=== PATIENT | male | born 1990 | race Caucasian/White ===

== ENCOUNTER → 2017-06-02 | Outpatient (CLI) | payer BC ==
[~2017-06-02] MED LIST: CYCL0.052 OPB; MULT-506 PO
--- NOTE | 2017-06-02 15:11 | DIAGNOSTIC IMAGING REPORT ---
ORBIT RADIOGRAPHS 3 VIEWS HISTORY: pre-MRI screening. COMPARISON: None. FINDINGS: There are no radiopaque foreign bodies identified within the orbits. IMPRESSION: No radiopaque foreign bodies identified within the orbits. Electronically signed by: Rolando Costa M.D. 06/02/2017 3:09 PM Dictated Date/Time: 06/02/2017 3:09 PM
--- NOTE | 2017-06-02 17:21 | DIAGNOSTIC IMAGING REPORT ---
L LOWER EXT JOINT WITHOUT CLINICAL HISTORY: 26 years-old Male with LEFT KNEE INTERNAL DERANGEMENT. Acute anterior and lateral left knee pain for several months with joint line tenderness to palpation. COMPARISON: None available TECHNIQUE: Multiplanar, multisequence MRI of the left knee was performed without intravenous contrast. FINDINGS: MENISCI: The medial meniscus is normal in position, morphology and signal. There is irregular linear increased T2 signal of the anterior horn lateral meniscus extending towards the superior articular surface as seen on images 15 and 16 of series 7 and image 14 series 5 with adjacent lobular circumscribed T2 hyperintense collection measuring 2.5 x 1.0 x 1.1 cm in AP, transverse and craniocaudal dimensions respectively nicely seen on image 21 series 8 and image 15 series 5. No definite displaced meniscal fragment identified. There is mild parameniscal edema within the adjacent meniscal gutter. CRUCIATE LIGAMENTS: The anterior and posterior cruciate ligaments are normal in signal, morphology and course. COLLATERAL LIGAMENTS: The popliteus tendon, biceps femoris tendon, fibular collateral ligament and iliotibial band are intact. The superficial and deep components of the medial collateral ligament are intact. EXTENSOR MECHANISM: The quadriceps and patellar tendons are intact. The medial and lateral patellar retinacula are intact. KNEE JOINT: There is no large joint effusion. There is no focal cartilage or osteochondral abnormality. BONE MARROW: The bone marrow signal is age appropriate. No fracture, marrow edema, or marrow replacing process. SOFT TISSUES: There is mild soft tissue edema noted interposed between the iliotibial band and lateral femoral condyle as seen on image 16 series 5. Minimal fluid within the deep pretibial bursa. 7 mm T2 hyperintense lesion is noted adjacent to the medial head gastrocnemius insertion site about the posterior aspect of the medial femoral condyle suggesting small ganglion. No large Navarro's cyst. IMPRESSION: 1. Mild intrameniscal signal of the anterior horn lateral meniscus is noted with irregular linear area of increased T2 signal extending towards the superior articular surface as above suspicious for a meniscal tear. Additionally, there is a T2 hyperintense collection adjacent to the anterior horn lateral meniscus measuring up to 2.5 cm suggesting parameniscal cyst. A ganglion could have a similar imaging appearance however is thought to be less likely. 2. Mild soft tissue edema interposed between the iliotibial band and lateral femoral condyle is likely reactive from the aforementioned meniscal findings. Correlate clinically to exclude iliotibial band syndrome. 3. No acute ligamentous injury, bone marrow edema or chondral abnormality identified. The above report was generated using voice recognition software. It may contain grammatical, syntax or spelling errors. Electronically signed by: Bib Jimenez M.D. 06/02/2017 5:19 PM Dictated Date/Time: 06/02/2017 5:08 PM
== END | disposition home or self-care (01) ==
LOC: C.RADBC 14:53
PROVIDERS: ATTEND Family Medicine
DX: M23.92 Unspecified internal derangement of left knee (principal); Z01.818 Encounter for other preprocedural examination

== ENCOUNTER → 2017-06-15 | Day surgery (SDC) | payer BC ==
[2017-06-11 08:56] VITALS: Ht 172.7 cm; Wt 65.9 kg
[~2017-06-15] VITALS: Ht 172.7 cm; Wt 65.9 kg
[~2017-06-15] MED LIST changes: +CEFAZOLIN 2000MG IV PUSH 15 ML IV SCH; +DEXAMETHASONE SOD INJ 4 MG/ML VIAL ONE; +FENTANYL CITRATE INJ 50 MCG/1 ML 2 ML VIAL ONE; +KETOROLAC TROMETHAMINE 30 MG/ML VIAL ONE; +LACTATED RINGER'S 1000ML 1,000 ML IV SCH; +LIDOCAINE HCL 2% 2 ML VIAL (20MG/ML) ONE; +MIDAZOLAM HCL 1 MG/ML 2ML VIAL ONE; +ONDANSETRON INJ 2 MG/ML 2 ML VIAL IV PRN; +ONDANSETRON INJ 2 MG/ML 2 ML VIAL ONE; +OXYCODONE/ACETAMINOPHEN 5-325 TAB PO PRN; +PROPOFOL IV EMULSION 10 MG/ML 20 ML VIAL IV ONE; +ROPIVACAINE 0.5% 5 MG/ML 30 ML VIAL ONE; +SODIUM CHLORIDE 0.9% 1000ML 1,000 ML IV SCH
--- NOTE | 2017-06-15 08:42 | History & Physical Bridge - SC ---
H&P Re-Evaluation Bridge Note: I have examined the patient, reviewed the History & Physical and in the interval since the performance of the History & Physical I have noted the following changes of clinical significance: No changes noted
[2017-06-15] MEDS: EpINEphrine HCL INJ 1 MG/ML 1ML SYRINGE ONE ×2 (10:13→10:38)
[2017-06-15] MEDS: LIDO 2%/EPINEPHRINE 1:100000 20 ML VIAL INFIL ONE ×2 (10:37→10:51)
--- NOTE | 2017-06-15 10:39 | [facility] Post Operative Brief Note ---
Immediate Operative Summary Operative Date Jun 15, 2017. Pre-Operative Diagnosis Left Knee Lateral Meniscus Tear, Parameniscal cyst Post-Operative Diagnosis Left knee synovitis, Healed lateral meniscus tear with parameniscal cyst Procedure(s) Performed Left Knee Arthroscopy, Synovectomy, Open Excision Lateral Parameniscal Cyst Surgeon Dr. Jose Dove Solar Installer Technician Surgeon(s) Waylon Pate MD, Logan Maradiaga PA-C, COSME BradleyII Estimated Blood Loss 5CC Findings Consistent with Post-Op Diagnosis Fluids (cc crystalloids) 800 cc Specimens A. Left Knee Parameniscal Cyst Drains None Anesthesia Type General Complication(s) none Disposition Accompanied Pt To Recovery: no Disposition: Recovery Room / PACU
--- NOTE | 2017-06-15 10:58 | [facility] Operative Report ---
Operative Report Operative Date Jun 15, 2017. Pre-Operative Diagnosis Left Knee Lateral Meniscus Tear, Parameniscal cyst Post-Operative Diagnosis Left knee synovitis, Healed lateral meniscus tear with parameniscal cyst Procedure(s) Performed Left Knee Arthroscopy, Synovectomy, Open Excision Lateral Parameniscal Cyst Surgeon Dr. Jose Dove Global Human Resources Director Surgeon(s) Waylon Pate MD, Logan Maradiaga PA-C, [employer] BradleyII Estimated Blood Loss 5CC Fluids 800 cc Specimens A. Left Knee Parameniscal Cyst Drains None Anesthesia Type General Complication(s) none Disposition no Recovery Room / PACU I attest to the content of the Intraoperative Record and any orders documented therein. Any exceptions are noted below.
--- NOTE | 2017-06-15 11:03 | Discharge Instructions ---
Discharge Instructions Date of Service Jun 15, 2017. Admission Reason for Admission: Left Knee Partial Lateral Meniscus Tear Paramenisc Discharge Discharge Diagnosis / Problem: Left knee partial lateral meniscus tear; synovitis; parameniscal cyst Discharge Goals Goal(s): Decrease discomfort, Improve function, Increase independence Activity Recommendations Activity Limitations: as noted below Lifting Limitations: none Exercise/Sports Limitations: until after follow-up appointment May Resume Sexual Activity: when tolerated Shower/Bathe: tomorrow, keep incision dry Driving or Machine Use: resume 3 days after discharge Weightbearing Status: Left weightbearing (as tolerated with aide of crutches) . Instructions / Follow-Up Instructions / Follow-Up Post-operative Instructions Dear Patient and Family/Friends, Before you are discharged from the hospital, it is important to know what to expect when you get home after surgery. To that end, we have created this sheet of discharge instructions which covers many commonly asked questions. Make sure you go through this sheet in its entirety with your nurse before you are discharged. Please note that we will go over the specifics of your surgery and recovery when you return for your first post-operative visit. Sincerely, Dr. Dove Pain Expect to be in a fair amount of pain after surgery. Remember, our goal is not to eliminate your pain, but to make it tolerable. It is a good idea to stay ahead of your pain by taking the medications you were prescribed once you get home. Typically, the pain starts improving 3-7 days after surgery. You should start weaning off the narcotic pain medication (oxycodone, hydrocodone, hydromorphone, morphine) as soon as your pain improves. Please call our office if your pain is not adequately controlled. Ice Ice your operative site at least 5 times a day for 15-30 minutes at a time. Make sure you have a thin cloth between the ice or cooling unit and your skin to prevent mcintyre bite. This is especially important if you received a nerve block. Continue icing your operative site for the first 5-7 days after surgery , then as needed. Diet/Nausea/Vomiting Start by drinking clear liquids and eating crackers. If you can tolerate this, then you may resume your normal diet. If you feel nauseated or vomit, take Zofran/ondansetron (if prescribed). Please call our office if you have intractable nausea or vomiting, or, if after hours, you may go to the Emergency Room for help. Constipation Constipation is a common side effect of narcotic pain medication. If you have not had a bowel movement within 2 days after surgery, we recommend purchasing an over the counter laxative such as Milk of Magnesia, Dulcolax, or Miralax from a local pharmacy, and taking it as instructed. Call our clinic if any questions. Slings and Braces If you were placed in a sling or brace, it must be worn at all times, including sleep. You may remove your sling or brace for physical therapy, home exercises , and showering. The length of time you will be in your brace and range of motion restrictions depends on what surgery you had; these details will be reviewed at your first post-operative appointment. Nerve block The anesthesia team sometimes places a nerve block to help with post-operative pain control. This results in significant numbness and inability to move the extremity. The nerve block usually wears off in 8-12 hours, but sometimes can last up to 24 hours. Please call our office if you are still unable to move your extremity after 24 hours, unless you received a pain pump to take home. Nerve blocks typically wear off quickly, so start taking pain medication as soon as you start feeling soreness near your surgical site. Weight bearing and Range of Motion. Do not bear any weight through your operative extremity immediately after surgery. If you had upper extremity surgery, do not lift anything with that arm. If you are in a knee brace, keep it locked in place until your follow-up. We will discuss your weight bearing, range of motion, and lifting restrictions in detail at your first post-operative appointment. Continuous Passive Motion (CPM) Machine If you were prescribed a CPM machine, it will start after your first post- operative appointment, at which time we will give you instructions on the range of motion settings and duration of treatment Physical therapy You will be given a prescription for physical therapy or occupational therapy at your first post-operative appointment. Typically, patients start therapy within 1 week of surgery Wound care and showering We will inspect your wound at your first post-operative visit, and may do a dressing change at that time. Most patients will be in a water-proof dressing that is removed 14 days after surgery. It is normal to see some dried blood on the dressing. Do not remove your dressing, paper strips or sutures yourself unless you are given permission. Showering is allowed the day after surgery. Do not scrub or remove any dressings. The wound should not be submerged underwater (i.e. in a bathtub or pool) until 4 weeks after surgery HAZEL stockings If you were given white stockings, these are to be worn at all times except to shower (on both legs) for the first 2 weeks after surgery. Driving You may not drive while taking narcotic pain medication or while in a cast, splint, sling or brace. You, the patient, need to make the final determination about when you are safe to drive, however, the earliest you may consider driving after surgery is below: Hand/Wrist/Elbow Surgery: 3 days Shoulder Surgery: 2 weeks Hip,/Knee/Ankle Surgery: 4 weeks Fracture repair: 6 weeks Return to Work Your return to work depends on what surgery was done and what type of work you do. Please bring any paperwork your employer needs completed to your first post -operative visit. Also, bring a description of your job duties, as this helps us to understand what risks you may face at work. Travel Avoid long distance travel (greater than 1 hour) in airplanes and cars for the first 6 weeks after surgery. If you must travel, you need to have a Doppler ultrasound done before you travel to rule out a blood clot in your legs. Follow-up You should have a follow-up appointment already scheduled 1-2 days after surgery. If not, please contact our office to make this appointment before you leave the hospital. When to call the office It is normal to have swelling and bruising in the limb that was operated on. This will improve with time. It is also normal to have fevers for the first 2 days after surgery. Reasons you should call your doctor include: Uncontrolled pain; Nausea, vomiting, or constipation that does not improve with medication; Fevers over 101.5, chills, sweats; Drainage or bleeding from the wound; Foul odor; Spreading areas of redness; Any other concerns Current Hospital Diet Patient's current hospital diet: Discharge Diet Recommended Diet: Regular Diet Procedures Procedures Performed: Left Knee Arthroscopy, Synovectomy, Open Excision Lateral Parameniscal Cyst Pending Studies Studies pending at discharge: yes List of pending studies: Parameniscal cyst and contents (pathology) Medical Emergencies . Who to Call and When: Medical Emergencies: If at any time you feel your situation is an emergency, please call 911 immediately. . Non-Emergent Contact Non-Emergency issues call your: Primary Care Provider Call Non-Emergent contact if: you have a fever, temperature is above 101.5, your pain is not controlled, your pain is worsening, wound has increased drainage, you have any medication questions . "Provider Documentation" section prepared by Logan Maradiaga. . VTE Core Measure Inpt VTE Proph given/why not?: Other Anticoagulation (Aspirin EC 81 mg), T.E.Maria Del Carmen [facility] Drug Monitoring Program Search Results: patient reviewed within database, no issues identified, see additional documentation
--- NOTE | 2017-06-15 11:24 | OPERATIVE REPORT ---
DATE OF OPERATION: 06/15/2017 PREOPERATIVE DIAGNOSES: Left knee lateral meniscus tear and parameniscal cyst. POSTOPERATIVE DIAGNOSES: Left knee synovitis, healed lateral meniscus tear and parameniscal cyst. OPERATIONS PERFORMED: Left knee arthroscopy, synovectomy and open parameniscal cyst excision. SURGEON: Clovis Dove MD AFTER SCHOOL COUNSELOR: Waylon Pate; Maria Del Carmen Maradiaga; and Danay Tate, medical student. IV FLUIDS: 800 mL crystalloid. ESTIMATED BLOOD LOSS: 5 mL COMPLICATIONS: None. SPECIMENS: Left knee parameniscal cyst in pieces. IMPLANTS: None. INDICATIONS: Richi is a 26-year-old male who has a remote history of injury to his knee with worsening anterolateral knee pain over the past several months. 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 It prevents him from running and being active like he otherwise like to be. An MRI was obtained showing irregularity of the anterior horn of the lateral meniscus with a large parameniscal cyst. His physical exam is consistent with a positive anterolateral Hoffa's test and tenderness over the cyst. I had a long discussion with him about the risks and benefits of surgery, alternatives to surgery and expected outcomes. After reviewing all these, he elected to proceed with surgery. All questions were answered. Informed consent was signed. OPERATIVE FINDINGS: 1. The suprapatellar pouch was normal. 2. Patella was normal. 3. The trochlea was normal. 4. Medial and lateral gutters were free of any loose bodies or synovitis. 5. The anterior compartment of the knee showed both medial and lateral synovitis, which was removed. 6. 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 Medial femoral condyle was intact. Medial meniscus was intact. 7. ACL and the PCL were intact. 8. The lateral compartment showed no tear of the anterior horn of the lateral meniscus, although there was some thickening on the superior surface consistent with a healed tear. The cartilage of the lateral femoral condyle and lateral tibial plateau was intact with the exception of a small crack in the lateral tibial plateau. The synovitis in the anterior aspect of the knee was debrided. The parameniscal cyst was excised through a 1-inch long laterally based incision. The cyst did track into the substance of the anterior horn of the lateral meniscus, but there was no tear. DESCRIPTION OF THE OPERATION: The patient was identified in the preoperative holding area where surgical site was marked. He was brought back to main operating room, was placed on the operating room table and general anesthesia was administered. All bony prominences were padded. Perioperative antibiotics were administered. He was prepped and draped in normal sterile fashion. Prior to incision, a multidisciplinary timeout was called. All in the room were in agreement. We began by making an anterolateral working portal. A medial portal was created under direct visualization. A diagnostic arthroscopy was then performed. Once the diagnostic arthroscopy was complete, the cautery wand was used as well as a shaver to remove the synovitis from the anterior medial and anterolateral aspects of the knee. The ligamentum mucosum was excised. The lateral meniscus was carefully probed to ensure that there was no tearing of the lateral meniscus being viewed from both the anterolateral and the anteromedial portal. The arthroscopic instruments were then removed from the knee. A 1-inch long incision was made in line with the patient's leg just along the posterior border of the iliotibial band. We dissected down through subcutaneous tissues to the level of the fascia. The fascia was incised in line with the fibers of the IT band directly over the central aspect of the cyst, which could be felt with palpation. The cyst was then dissected out and it tracked adjacent to the capsule both above and below the lateral meniscus. I then elected to enter the cyst and remove it piecemeal to ensure that portions of the lateral meniscus were not removed. Benign-appearing cyst contents, which were gelatinous, were immediately encountered after entering the cyst. These were removed with suction and a Ray-Dorota. The frazier of the cyst were then excised with tenotomy scissors and these as well as the gelatinous material were sent to pathology. After the cyst had been entirely removed, it could be seen immediately adjacent to the lateral meniscus at its peripheral margin. At this point, meticulous hemostasis was ensured. The fascia was closed along the posterior border of the IT band with a running 0 Vicryl suture. The deep dermis was closed with inverted 3-0 Vicryl followed by a 3-0 Monocryl in a subcuticular fashion. The arthroscopic portals were closed with inverted 3-0 Monocryl sutures. Steri-Strips were applied followed by sterile dressings. The patient was awoken from anesthesia and transferred to the recovery room in stable condition. POSTOPERATIVE COURSE: The patient will be discharged home from the recovery room. He will start immediate active range of motion exercises for his knee. He will be weightbearing as tolerated with crutches for the next 3-4 days. Aspirin for DVT prophylaxis. He will follow up in our clinic tomorrow to start physical therapy. I attest to the content of the Intraoperative Record and any orders documented therein. Any exception s are noted below.
--- NOTE | 2017-06-15 11:33 | Anesthesia Progress Nt - [facility] ---
Anesthesia Post Op Note Date & Time Jun 15, 2017 at 11:32 Vital Signs Pain Intensity: 6 Vital Signs Past 12 Hours Date Time Temp Pulse Resp B/P (MAP) Pulse Ox O2 Delivery O2 Flow Rate FiO2 06/15/17 11:29 36.9 06/15/17 11:28 67 22 06/15/17 11:28 67 22 99 06/15/17 11:26 132/73 (93) 06/15/17 11:23 72 16 100 06/15/17 11:23 74 16 06/15/17 11:21 132/66 (87) 06/15/17 11:18 78 14 06/15/17 11:18 79 14 100 06/15/17 11:16 133/80 (94) 06/15/17 11:15 Room Air 06/15/17 11:13 82 17 06/15/17 11:13 84 17 100 06/15/17 11:08 66 12 06/15/17 11:08 67 12 100 06/15/17 11:06 114/73 (90) 06/15/17 11:03 67 13 100 06/15/17 11:03 66 13 06/15/17 11:01 127/73 (91) 06/15/17 11:00 122/69 (90) 06/15/17 10:58 36.5 80 16 122/69 100 Diffusion Mask 5 06/15/17 08:18 36.6 58 16 157/74 (101) 98 Room Air Notes Mental Status: alert / awake / arousable, participated in evaluation Pt Amnestic to Procedure: Yes Nausea / Vomiting: adequately controlled Pain: adequately controlled Airway Patency, RR, SpO2: stable & adequate BP & HR: stable & adequate Hydration State: stable & adequate Anesthetic Complications: no major complications apparent
[2017-06-15 11:35] VITALS: TEMP 37.2
[2017-06-15 11:59] VITALS: BP 124/76; PULSE 65; O2SAT 100
== END | disposition home or self-care (01) ==
LOC: X.SURG 08:04
PROVIDERS: ATTEND Orthopaedic Surgery
DX: M23.062 Cystic meniscus, other lateral meniscus, left knee (principal); M65.862 Other synovitis and tenosynovitis, left lower leg; X58.XXXA Exposure to other specified factors, initial encounter